=== PATIENT | male | born 1980 | race Caucasian/White ===

== ENCOUNTER 2021-01-02 11:37 | Emergency (ER) | payer BC ==
[2021-01-02] MEDS ORDERED: LIDOCAINE-PRILOCAINE 2.5-2.5% CREAM 5 GM TUBE TOPICAL STA (12:23)
[2021-01-02] MEDS ORDERED: LORazepam 2 MG/ML INJ IV STA (12:28)
--- NOTE | 2021-01-02 12:28 | ED ---
Dizziness HPI - General Chief Complaint: Dizziness Stated Complaint: High BP Time Seen by Provider: 01/02/21 12:08 Source: EMS Mode of arrival: EMS Limitations: no limitations - History of Present Illness Initial Comments: Patient presents with dizziness, malaise, generally not feeling well for at least the last 3 days. Nothing makes his symptoms better or worse. He hasn't taken any medicine for this. He wasn't doing anything when it began. He is unaware of any sick contacts. He hasn't traveled anywhere. He has no nausea or vomiting. He has no chest pain or shortness of breath. He feels like his belly is swollen. He has no focal weakness. He has had no sick a be. He has no blood in the stool. - Related Data Home Medications Medication Instructions Recorded Confirmed Aspirin EC [Ecotrin Low Dose] 81 mg PO DAILY 01/02/21 01/02/21 Cholecalciferol (Vitamin D3) 75 mcg PO DAILY 01/02/21 01/02/21 [Vitamin D3 (3000 Iu)] Ibuprofen [Motrin Ib] 200 mg PO Q8H PRN 01/02/21 01/02/21 Levothyroxine Sodium [Synthroid] 75 mcg PO DAILY 01/02/21 01/02/21 Metoprolol Succinate (ER) [Toprol 50 mg PO DAILY 01/02/21 01/02/21 Xl] Previous Rx's Medication Instructions Recorded Azithromycin [Zithromax Z-pack (6 250 mg PO DIRECTED 5 Days #6 tab 01/02/21 tabs)] Losartan-Hctz 50-12.5 mg [Hyzaar 1 tab PO DAILY #30 tablet 01/02/21 50-12.5] Metoprolol Succinate [Kapspargo 100 mg PO DAILY #30 cap.spr.24 01/02/21 Sprinkle] Allergies Allergy/AdvReac Type Severity Reaction Status Date / Time Penicillins Allergy Unknown Verified 01/02/21 13:33 Childhood Review of Systems ROS Statement: Those systems with pertinent positive or pertinent negative responses have been documented in the HPI. ROS Other: All systems not noted in ROS Statement are negative. Past Medical History Past Medical History: Diabetes Mellitus, Hypertension, Thyroid Disorder History of Any Multi-Drug Resistant Organisms: None Reported Past Surgical History: Orthopedic Surgery Additional Past Surgical History / Comment(s): luana in right leg with 4 bolts Past Psychological History: No Psychological Hx Reported Smoking Status: Never smoker Past Alcohol Use History: Rare Past Drug Use History: None Reported General Exam Limitations: no limitations General appearance: alert, in no apparent distress Head exam: Present: atraumatic, normocephalic, normal inspection Eye exam: Present: normal appearance, PERRL, EOMI. Absent: scleral icterus, conjunctival injection, periorbital swelling ENT exam: Present: normal exam, mucous membranes moist Neck exam: Present: normal inspection. Absent: tenderness, meningismus, lymphadenopathy Respiratory exam: Present: normal lung sounds bilaterally. Absent: respiratory distress, wheezes, rales, rhonchi, stridor Cardiovascular Exam: Present: regular rate, normal rhythm, normal heart sounds. Absent: systolic murmur, diastolic murmur, rubs, gallop, clicks GI/Abdominal exam: Present: soft, normal bowel sounds. Absent: distended, tenderness, guarding, rebound, rigid Extremities exam: Present: normal inspection, full ROM, normal capillary refill. Absent: tenderness, pedal edema, joint swelling, calf tenderness Back exam: Present: normal inspection Neurological exam: Present: alert, oriented X3, CN II-XII intact Psychiatric exam: Present: normal affect, normal mood Skin exam: Present: warm, dry, intact, normal color. Absent: rash Course Vital Signs 01/02/21 01/02/21 01/02/21 11:39 14:13 15:18 Temperature 102.9 F H 98.6 F Pulse Rate 129 H 116 H 102 H Respiratory 22 20 18 Rate Blood Pressure 148/104 142/95 147/93 O2 Sat by Pulse 96 96 95 Oximetry EKG Findings - EKG Comments: EKG Findings:: Twelve-lead EKG shows ventricular rate 123 bpm, normal AK interval and QRS complexes, no ST elevation or depression, interpreted by me as sinus tachycardia. Medical Decision Making - Medical Decision Making Patient's laboratory studies demonstrate an elevated white count his imaging is concerning for bilateral pneumonia. I ordered him antibiotics. I will prescribe him and buttocks to home on. I am also refilling his blood pressure medications that he is requesting. He is feeling much better. He is stable for discharge. - Lab Data Result diagrams: 01/02/21 14:01 01/02/21 14:01 Lab Results 01/02/21 01/02/21 01/02/21 Range/Units 14:01 14:01 14:01 WBC 6.0 (3.8-10.6) k/uL RBC 5.80 (4.30-5.90) m/uL Hgb 16.8 (13.0-17.5) gm/dL Hct 47.8 (39.0-53.0) % MCV 82.5 (80.0-100.0) fL MCH 28.9 (25.0-35.0) pg MCHC 35.1 (31.0-37.0) g/dL RDW 14.3 (11.5-15.5) % Plt Count 204 (150-450) k/uL MPV 8.5 Neutrophils % 73 % Lymphocytes % 19 % Monocytes % 6 % Eosinophils % 0 % Basophils % 0 % Neutrophils # 4.4 (1.3-7.7) k/uL Lymphocytes # 1.1 (1.0-4.8) k/uL Monocytes # 0.3 (0-1.0) k/uL Eosinophils # 0.0 (0-0.7) k/uL Basophils # 0.0 (0-0.2) k/uL PT 12.1 H (9.0-12.0) sec INR 1.2 H (<1.2) Sodium 130 L (137-145) mmol/L Potassium 3.7 (3.5-5.1) mmol/L Chloride 99 (98-107) mmol/L Carbon Dioxide 18 L (22-30) mmol/L Anion Gap 13 mmol/L BUN 15 (9-20) mg/dL Creatinine 0.86 (0.66-1.25) mg/dL Est GFR (CKD-EPI)AfAm >90 (>60 ml/min/1.73 sqM) Est GFR (CKD-EPI)NonAf >90 (>60 ml/min/1.73 sqM) Glucose 306 H (74-99) mg/dL Calcium 8.9 (8.4-10.2) mg/dL Total Bilirubin 0.8 (0.2-1.3) mg/dL AST 107 H (17-59) U/L ALT 62 H (4-49) U/L Alkaline Phosphatase 56 (38-126) U/L Troponin I (0.000-0.034) ng/mL Total Protein 6.5 (6.3-8.2) g/dL Albumin 3.8 (3.5-5.0) g/dL Urine Color Urine Appearance (Clear) Urine pH (5.0-8.0) Ur Specific [place] (1.001-1.035) Urine Protein (Negative) Urine Glucose (UA) (Negative) Urine Ketones (Negative) Urine Blood (Negative) Urine Nitrite (Negative) Urine Bilirubin (Negative) Urine Urobilinogen (<2.0) mg/dL Ur Leukocyte Esterase (Negative) Urine RBC (0-5) /hpf Urine WBC (0-5) /hpf Ur Squamous Epith Cells (0-4) /hpf Hyaline Casts (0-2) /lpf Urine Mucus (None) /hpf Coronavirus (PCR) (Not Detectd) 01/02/21 01/02/21 01/02/21 Range/Units 14:01 14:01 16:01 WBC (3.8-10.6) k/uL RBC (4.30-5.90) m/uL Hgb (13.0-17.5) gm/dL Hct (39.0-53.0) % MCV (80.0-100.0) fL MCH (25.0-35.0) pg MCHC (31.0-37.0) g/dL RDW (11.5-15.5) % Plt Count (150-450) k/uL MPV Neutrophils % % Lymphocytes % % Monocytes % % Eosinophils % % Basophils % % Neutrophils # (1.3-7.7) k/uL Lymphocytes # (1.0-4.8) k/uL Monocytes # (0-1.0) k/uL Eosinophils # (0-0.7) k/uL Basophils # (0-0.2) k/uL PT (9.0-12.0) sec INR (<1.2) Sodium (137-145) mmol/L Potassium (3.5-5.1) mmol/L Chloride (98-107) mmol/L Carbon Dioxide (22-30) mmol/L Anion Gap mmol/L BUN (9-20) mg/dL Creatinine (0.66-1.25) mg/dL Est GFR (CKD-EPI)AfAm (>60 ml/min/1.73 sqM) Est GFR (CKD-EPI)NonAf (>60 ml/min/1.73 sqM) Glucose (74-99) mg/dL Calcium (8.4-10.2) mg/dL Total Bilirubin (0.2-1.3) mg/dL AST (17-59) U/L ALT (4-49) U/L Alkaline Phosphatase (38-126) U/L Troponin I 0.013 (0.000-0.034) ng/mL Total Protein (6.3-8.2) g/dL Albumin (3.5-5.0) g/dL Urine Color Yellow Urine Appearance Clear (Clear) Urine pH 6.0 (5.0-8.0) Ur Specific [place] 1.028 (1.001-1.035) Urine Protein 2+ H (Negative) Urine Glucose (UA) 4+ H (Negative) Urine Ketones 1+ H (Negative) Urine Blood Large H (Negative) Urine Nitrite Negative (Negative) Urine Bilirubin Negative (Negative) Urine Urobilinogen <2.0 (<2.0) mg/dL Ur Leukocyte Esterase Negative (Negative) Urine RBC 4 (0-5) /hpf Urine WBC 4 (0-5) /hpf Ur Squamous Epith Cells 1 (0-4) /hpf Hyaline Casts 4 H (0-2) /lpf Urine Mucus Few H (None) /hpf Coronavirus (PCR) Not Detected (Not Detectd) Disposition Clinical Impression: Pneumonia Disposition: HOME SELF-CARE Condition: Good Instructions (If sedation given, give patient instructions): Pneumonia (ED) Prescriptions: Losartan-Hctz 50-12.5 mg [Hyzaar 50-12.5] 1 tab PO DAILY #30 tablet Metoprolol Succinate [Kapspargo Sprinkle] 100 mg PO DAILY #30 cap.spr.24 Azithromycin [Zithromax Z-pack (6 tabs)] 250 mg PO DIRECTED 5 Days #6 tab Is patient prescribed a controlled substance at d/c from ED?: No Referrals: Stephy Alexis MD [Primary Care Provider] - 1-2 days
--- NOTE | 2021-01-02 13:58 | XR ---
EXAMINATION TYPE: XR chest 1V portable DATE OF EXAM: 01/02/2021 Comparison: None Clinical History: 40-year-old male cough Findings: Large patient body habitus. Hazy densities overlying both lungs due to underpenetration. Mild patchy density along the left heart margin. Interstitial prominence. No other consolidation or pleural effus ion seen. Impression: Some vague patchy density along the left heart margin could represent atelectasis or a developing inf iltrate.
[2021-01-02] MEDS ORDERED: ACETAMINOPHEN TAB 500 MG TAB PO STA (14:03)
[2021-01-02] MEDS ORDERED: IBUPROFEN 800 MG TAB PO STA (14:04)
[2021-01-02 14:13] LABS: Basophils % (A) 0 %; Eosinophils % (A) 0 %; HCT 47.8 % (39.0-53.0); HGB 16.8 gm/dL (13.0-17.5); Lymphocytes # (A) 1.1 k/uL (1.0-4.8); Lymphocytes % (A) 19 %; MCH 28.9 pg (25.0-35.0); MCHC 35.1 g/dL (31.0-37.0); MCV 82.5 fL (80.0-100.0); Mean Platelet Volume 8.5; Monocytes # (A) 0.3 k/uL (0-1.0); Monocytes % (A) 6 %; Neutrophils # (A) 4.4 k/uL (1.3-7.7); Neutrophils % (A) 73 %; Platelet Count 204 k/uL (150-450); RDW 14.3 % (11.5-15.5)
[2021-01-02 14:23] LABS: ALT 62 U/L (4-49); AST 107 U/L (17-59); African American GFR (CKD) >90 (>60 ml/min/1.73 sqM); Albumin 3.8 g/dL (3.5-5.0); Alkaline Phosphatase 56 U/L (38-126); Anion Gap 13 mmol/L; Blood Urea Nitrogen 15 mg/dL (9-20); Calcium 8.9 mg/dL (8.4-10.2); Carbon Dioxide 18 mmol/L (22-30); Chloride 99 mmol/L (98-107); Glucose 306 mg/dL (74-99); Non-African American GFR(CKD) >90 (>60 ml/min/1.73 sqM); Potassium 3.7 mmol/L (3.5-5.1); Sodium 130 mmol/L (137-145); Total Bilirubin 0.8 mg/dL (0.2-1.3); Total Protein 6.5 g/dL (6.3-8.2)
--- NOTE | 2021-01-02 14:29 | US ---
EXAMINATION TYPE: US venous doppler duplex LE DATE OF EXAM: 01/02/2021 1:53 PM COMPARISON: NONE CLINICAL HISTORY: pain. pain SIDE PERFORMED: Bilateral TECHNIQUE: The lower extremity deep venous system is examined utilizing real time linear array sonog evin with graded compression, doppler sonography and color-flow sonography. VESSELS IMAGED: Common Femoral Vein Deep Femoral Vein Greater Saphenous Vein * Femoral Vein Popliteal Vein Small Saphenous Vein * Proximal Calf Veins (* superficial vessels) Patient could barely tolerate compressions. Right Leg: Negative for DVT Left Leg: Negative for DVT IMPRESSION: 1. Bilateral lower extremity ultrasound negative for deep venous thrombosis.
[2021-01-02 14:33] LABS: INR 1.2 (<1.2); Prothrombin Time 12.1 sec (9.0-12.0)
[2021-01-02 15:21] VITALS: RESP 18
[2021-01-02 16:35] LABS: Appearance,Urine Clear (Clear); Bilirubin,Urine Negative (Negative); Blood,Urine Large (Negative); Color,Urine Yellow; Glucose,Urine (UA) 4+ (Negative); Hyaline Casts,Urine 4 /lpf (0-2); Ketones,Urine 1+ (Negative); Leukocyte Esterase,Urine Negative (Negative); Mucus,Urine Few /hpf; Nitrite,Urine Negative (Negative); Protein,Urine 2+ (Negative); RBC,Urine 4 /hpf (0-5); Specific Gravity,Urine 1.028 (1.001-1.035); Squamous Epithelial Cell,Urine 1 /hpf (0-4); Urobilinogen,Urine <2.0 mg/dL (<2.0); WBC,Urine 4 /hpf (0-5)
--- NOTE | 2021-01-02 17:12 | CT ---
EXAMINATION TYPE: CT abdomen pelvis w con DATE OF EXAM: 01/02/2021 COMPARISON: None HISTORY: Generalized pain with N/V/D CT DLP: 3699.9 mGycm Automated exposure control for dose reduction was used. CONTRAST: Performed with IV Contrast, patient injected with 100 mL of Isovue 300. There is some patchy groundglass interstitial infiltrates at both lung bases. Heart size is normal. T here is no pericardial effusion. There is some fatty infiltration of the liver. There are 2 calcified gallstones. Spleen is intact. Th ere is no pancreatic mass. Bile ducts are not dilated. Stomach is intact. There is no adrenal mass. K idneys show satisfactory contrast opacification. There is no hydronephrosis. The ureters are not dila deny. There is no retroperitoneal adenopathy. Appendix is medial and posterior and appears normal. Donald dder distends smoothly. The delayed images show little contrast in the renal collecting systems. There is no inguinal hernia. There is no free fluid in the pelvis. There are isolated sigmoid diverti cula. There is no evidence of diverticulitis. There is no mesenteric edema. There is no ascites or fr ee air. There is no bowel obstruction. The lumbar vertebra have normal alignment. Disc spaces are fairly normal. There is no compression fra cture. The posterior elements are intact. Hip joints are intact. There is no hip dysplasia. IMPRESSION: Fatty infiltration of the liver. Decreased excretion on the delayed images could relate to some degree of renal failure. Groundglass interstitial patchy pulmonary infiltrates. Cholelithiasis. No dilated ducts.
[2021-01-02] MEDS ORDERED: AZITHROMYCIN 500 MG TAB PO STA (17:34)
[2021-01-02 17:57] VITALS: BP 139/99; PULSE 90; TEMP 97.7
== END 2021-01-02 18:04 | disposition home or self-care (01) ==
LOC: EC 11:37
DX: J18.9 Pneumonia, unspecified organism (principal); E11.9 Type 2 diabetes mellitus without complications; R42 Dizziness and giddiness; E07.9 Disorder of thyroid, unspecified; I10 Essential (primary) hypertension; Z88.0 Allergy status to penicillin; Z79.890 Hormone replacement therapy; Z79.899 Other long term (current) drug therapy; Z79.82 Long term (current) use of aspirin; Z20.822 Contact with and (suspected) exposure to COVID-19
CPT/HCPCS: 99285; 36415; 93005; 80053; 84484; 85025; 85610; 81001; 87635; 71045; 93970; 74177; Q9967